=== PATIENT | female | born 1980 | race African-American/Black ===

== ENCOUNTER 2019-09-20 23:04 | Emergency (ER) | payer BC ==
--- NOTE | 2019-09-20 23:59 | EDM.PDOC ---
ED HPI GENERAL MEDICAL PROBLEM - General Chief Complaint: General Stated Complaint: CANT GET RING OFF FINGER Time Seen by Provider: 09/20/19 23:32 - History of Present Illness INITIAL COMMENTS - FREE TEXT/NARRATIVE: HISTORY AND PHYSICAL: History of present illness: Patient is a 39-year-old female who was in her usual state of good health with no systemic issues who said that her fingers and hands were slightly swollen earlier and she did not remove her ring because it seemed to be improving. She returns to the emergency department because her fingers reswelled and now she cannot get her ring off her right fourth digit. She has no complaints and denies any trauma to the right hand or fingers. She has no other complaints. She says she tried Vaseline and soap and water. Review of systems: As per history of present illness and below otherwise all systems reviewed and negative. Past medical history: As per history of present illness and as reviewed below otherwise noncontributory. Surgical history: As per history of present illness and as reviewed below otherwise noncontributory. Social history: No reported history of drug or alcohol abuse. Family history: As per history of present illness and as reviewed below otherwise noncontributory. Physical exam: HEENT: Atraumatic, normocephalic, negative for conjunctival pallor or scleral icterus, mucous membranes moist, throat clear, neck supple, nontender, trachea midline. Lungs: Clear to auscultation, breath sounds equal bilaterally, chest nontender. Heart: S1S2, regular, and rhythm no overt murmurs Abdomen: Soft, nondistended, nontender. Pelvis: Deferred Genitourinary: Deferred. Rectal: Deferred. Extremities: Atraumatic, range of motion of all extremities including the right finger and hands but there is soft tissue swelling seen of all of the digits of the right hand but more specifically the distal aspect of the fourth digit. There is good cap refill in all the digits and a large bandage a gold ring is seen at the proximal aspect of the right fourth digit. It can be turned and manipulated but there is moderate soft tissue swelling of the distal soft tissue preventing removal. The patient does not state that she is having significant pain with palpation or movement. Negative for cords or calf pain. Neurovascular unremarkable. Neuro: Awake, alert, oriented. Cranial nerves II through XII unremarkable. Cerebellum unremarkable. Motor and sensory unremarkable throughout. Exam nonfocal. Diagnostics: [] Therapeutics: Coban and ice were placed but did not reduce the swelling significantly enough to remove so umbilical tape was utilized by nursing patient was not tolerating this very well and wanted us to cut it off so the ring was cut and the ring was removed. There was some superficial skin trauma and redness appreciated with this procedure but she tolerated it well. We advised the patient to ice and elevate the area and to continue to monitor the swelling and use over-the- counter meds for pain management Impression: Ring stuck on finger removed/ring tourniquet resolved Definitive disposition and diagnosis as appropriate pending reevaluation and review of above. - Related Data Allergies Allergy/AdvReac Type Severity Reaction Status Date / Time No Known Allergies Allergy Verified 09/20/19 23:38 Home Meds: Home Meds Escitalopram [Lexapro] 20 mg PO DAILY 09/20/19 [History] Past Medical History - Past Health History Medical/Surgical History: Denies Medical/Surgical History HEENT History: Reports: None Cardiovascular History: Reports: None Respiratory History: Reports: None Gastrointestinal History: Reports: None Genitourinary History: Reports: None [employer] History: Reports: None Musculoskeletal History: Reports: None Neurological History: Reports: None Psychiatric History: Reports: Anxiety, Depression Endocrine/Metabolic History: Reports: None Hematologic History: Reports: None Immunologic History: Reports: None Oncologic (Cancer) History: Reports: None Dermatologic History: Reports: None - Infectious Disease History Infectious Disease History: Reports: None - Past Surgical History Head Surgeries/Procedures: Reports: None Social & Family History - Tobacco Use Smoking Status *Q: Never Smoker Second Hand Smoke Exposure: No - Caffeine Use Caffeine Use: Reports: None - Recreational Drug Use Recreational Drug Use: No ED ROS GENERAL - Review of Systems Review Of Systems: Comprehensive ROS is negative, except as noted in HPI. ED EXAM, GENERAL - Physical Exam Exam: See Below (see dictation) Course - Vital Signs Last Recorded V/S: Last Vital Signs Temp 36.8 C 09/20/19 23:35 Pulse 65 09/20/19 23:35 Resp 18 09/20/19 23:35 BP 115/62 09/20/19 23:35 Pulse Ox 98 09/20/19 23:35 Departure - Departure Time of Disposition: 00:35 Disposition: Home, Self-Care 01 Condition: Good Clinical Impression: Tight ring on finger - Discharge Information Referrals: PCP,None [Primary Care Provider] - Forms: ED Department Discharge Additional Instructions: The following information is given to patients seen in the emergency department who are being discharged to home. This information is to outline your options for follow-up care. We provide all patients seen in our emergency department with a follow-up referral. The need for follow-up, as well as the timing and circumstances, are variable depending upon the specifics of your emergency department visit. If you don't have a primary care physician on staff, we will provide you with a referral. We always advise you to contact your personal physician following an emergency department visit to inform them of the circumstance of the visit and for follow-up with them and/or the need for any referrals to a consulting specialist. The emergency department will also refer you to a specialist when appropriate. This referral assures that you have the opportunity for followup care with a specialist. All of these measure are taken in an effort to provide you with optimal care, which includes your followup. Under all circumstances we always encourage you to contact your private physician who remains a resource for coordinating your care. When calling for followup care, please make the office aware that this follow-up is from your recent emergency room visit. If for any reason you are refused follow-up, please contact the [facility] emergency department at and ask to speak to the emergency department charge nurse. [facility] Primary care- [place] [address] Ice and elevate your hand and fingers as much as possible and use over-the- counter medications for pain. It may be swollen and discomforting for the next [address] any more rings on that hand over that finger. Please follow-up with your provider or 1 of ours as you choose next week for reevaluation and return to ER as needed and as discussed Sepsis Event Note - Evaluation Sepsis Screening Result: No Definite Risk - Focused Exam Vital Signs: Vital Signs Temp Pulse Resp BP Pulse Ox 09/20/19 23:35 36.8 C 65 18 115/62 98 Date Exam was Performed: 09/21/19 Time Exam was Performed: 00:34
== END 2019-09-21 00:50 | disposition home or self-care (01) ==
LOC: MW.ED 23:04
DX: S60.454A Superficial foreign body of right ring finger, initial encounter (principal); F41.9 Anxiety disorder, unspecified; F32.9 Major depressive disorder, single episode, unspecified; Z79.899 Other long term (current) drug therapy; W49.04XA Ring or other jewelry causing external constriction, initial encounter
CPT/HCPCS: 99283